=== PATIENT | male | born 1950 | race Caucasian/White ===

== ENCOUNTER 2017-01-04 06:47 | Outpatient (CLI) | payer MEDICARE, OTHER ==
[2017-01-04] MEDS ORDERED: LEVAQUIN500 MG PO (07:31)
[2017-01-04] MEDS ORDERED: ZYLOPRIM100 MG PO (07:33)
[2017-01-04] MEDS ORDERED: CARDURA8 MG PO (07:33)
[2017-01-04] MEDS ORDERED: OMEPRAZOLE CAP 20M (07:34)
[2017-01-04] MEDS ORDERED: BENAZEPRIL HCL10 MG PO (07:36)
[2017-01-04] MEDS ORDERED: LOTREL 10-40 M1 EACH PO (07:37)
[2017-01-04] MEDS ORDERED: TENORMIN25 MG PO (07:38)
[2017-01-04 08:49] LABS: BASOPHILS 0.1 % (0-2); EOSINOPHILS 0.6 % (0-7); HEMATOCRIT 30.7 % (42.0-54.0); HEMOGLOBIN 10.9 g/dL (13.5-17.5); IMMATURE GRANULOCYTES 0.3 % (0-5); LYMPHOCYTES 8.5 % (15-50); MCH 35.6 pg (26.0-34.0); MCHC 35.5 g/dL (31.0-37.0); MCV 100.3 fL (80.0-100.0); MEAN PLATELET VOLUME 12.7 fL (7.4-10.4); MONOCYTES 6.9 % (2-11); NEUTROPHILS 83.6 % (40-80); PLATELET COUNT 53 10x3/uL (130-400); RBC 3.06 10x6/uL (4.20-6.10); RDW 13.9 % (11.5-14.5); WBC 6.8 10x3/uL (4.8-10.8)
[2017-01-04 08:52] LABS: INR 1.26 (0.85-1.17); PROTIME 15.7 SECONDS (11.6-15.0)
[2017-01-04 08:53] LABS: APTT 54.1 SECONDS (22.8-39.4)
[2017-01-04 08:54] LABS: CALC OSMOLALITY 254 mosm/kg (275-300); CALCIUM 8.2 mg/dL (8.5-10.1); CHLORIDE - SERUM 94 mmol/L (98-107); CREATININE - SERUM 0.8 mg/dL (0.6-1.3); GLUCOSE 107 mg/dL (74-106); POTASSIUM - SERUM 4.1 mmol/L (3.5-5.1); SODIUM 128 mmol/L (136-145); UREA NITROGEN 8 mg/dL (7-18); eGFR NON AFRICAN AMERICAN > 90 mL/min (90-120)
[2017-01-04 09:07] LABS: PLATELET ESTIMATE DECREASED
== END 2017-01-04 11:14 | disposition home or self-care (01) ==
LOC: D.OPS 06:47 → D.SP 08:00 → D.OPS 09:00
PROVIDERS: General Practice
DX: R18.8 Other ascites (principal); Z01.812 Encounter for preprocedural laboratory examination